=== PATIENT | male | born 1975 | race Caucasian/White ===

== ENCOUNTER 2018-01-06 12:14 | Day surgery (SDC) | payer SELFPAY ==
[2018-01-05 08:43] VITALS: BMI 30.5
--- NOTE | 2018-01-05 09:38 | HP ---
HISTORY AND PHYSICAL CHIEF COMPLAINT: Left knee pain. 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 It has worsened recently. He notes lateral pain along with swelling and occasional giving way. He notes it does significantly limit him. PAST MEDICAL HISTORY: Negative. PAST SURGICAL HISTORY: Negative. CURRENT MEDICATIONS: None. ALLERGIES: He denies drug allergies. FAMILY HISTORY: Negative. SOCIAL HISTORY: Significant for social alcohol use. REVIEW OF SYSTEMS: Sixteen-point review of systems otherwise reviewed and is noncontributory. PHYSICAL EXAMINATION: On examination, the patient is approximately 6 feet tall, 225 pounds of mesomorphic habitus. HEENT exam is nonfocal. Neck is supple. He has painless passive motion of his left hip. Straight leg raise is negative. Active motion left knee -4 to 125 degrees of flexion. He is tender about the lateral joint line. Collaterals are stable, Suzi's negative, Mariana's elicits lateral pain. His distal neurovascular exam appears intact in the left lower extremity. Weightbearing notch lateral and Merchant views of the left knee obtained in the office show some flattening of the lateral femoral condyle. Previous MRI report showed evidence of a discoid lateral meniscus along with a lateral meniscal tear. IMPRESSION: 1. Internal derangement left knee with symptomatic lateral meniscal tear. 2. Left knee discoid lateral meniscus. RECOMMENDATIONS: I talked to the patient regarding his condition and treatment options. At this point, he is having significant pain and mechanical symptoms that limit him. After discussing his options, he opts to proceed with surgery. We will plan to proceed with arthroscopic evaluation with possible partial lateral meniscectomy/saucerization of the lateral meniscus. We will likely perform that as an outpatient procedure. Risks and benefits were discussed at length in layman's terms. MMODL / IJN: [id number] /
[~2018-01-06 12:14] MED LIST: DEXAMETHASONE SOD PHOSPHATE 10 MG/ML 1 ML VIAL IV ONE; LACTATED RINGERS 1,000 ML IV SCH; MIDAZOLAM 2 MG/2 ML VIAL IV PRN; ONDANSETRON 4 MG/2 ML VIAL IVP ONE; ceFAZolin IN SWFI 2 GM/20 ML SYRINGE IVP ONE
[2018-01-06] MEDS ORDERED: LIDOCAINE 1% 20 ML VIAL (10MG/ML) FOR IV START INTRADERMA ONE (12:55)
[2018-01-06] MEDS ORDERED: SUCCINYLCHOLINE CHLORIDE 100 MG/5 ML SYR IV ONE (14:20)
[2018-01-06] MEDS ORDERED: GLYCOPYRROLATE 0.2 MG/ML 2 ML VIAL ONE (14:20)
[2018-01-06] MEDS ORDERED: MIDAZOLAM 2 MG/2 ML VIAL ONE (14:20)
[2018-01-06] MEDS ORDERED: PROPOFOL 10 MG/ML 20 ML VIAL IV ONE (14:20)
[2018-01-06] MEDS ORDERED: fentaNYL (PF) 50 MCG/ML 2 ML AMP ONE (14:20)
[2018-01-06] MEDS ORDERED: LIDOCAINE 1% INJ 10MG/ML (20 ML MDV) ONE (14:20)
[2018-01-06] MEDS ORDERED: methylPREDNISolone ACETATE 80 MG/ML 1 ML VIAL INTRAARTIC ONE (14:33)
[2018-01-06] MEDS ORDERED: LIDOCAINE 2% (PF) 20 MG/ML 10 ML AMP INTRAARTIC ONE (14:33)
[2018-01-06] MEDS ORDERED: LACTATED RINGERS 1,000 ML IV ONE ×2 (14:35→16:03)
--- NOTE | 2018-01-06 15:16 | P.OP ---
Date of Procedure: 01/06/18 Preoperative Diagnosis: Left knee lateral meniscal teardiscoid meniscus/right knee internal derangement Postoperative Diagnosis: Same Procedure(s) Performed: Left knee arthroscopic partial lateral meniscectomy/cortisone injection right knee Anesthesia: CHINOA Surgeon: Jorden Andrade Estimated Blood Loss (ml): 10 Pathology: none sent Condition: stable Disposition: PACU Indications for Procedure: The patient is a 42-year-old male who presents with progressive left knee pain and mechanical symptoms for quite some time. Clinically and by MRI he was noted of evidence of a discoid lateral meniscus with a lateral meniscal tear. A discussion of the risks and benefits of operative intervention versus continued conservative measures was made with patient. He opted to proceed. Operative risks to include infection, neurovascular injury, development of blood clots, possible incomplete resolution of symptoms, possible worsening symptoms and need for subsequent procedures was discussed. Informed consent was obtained. He also mentioned he had significant recent pain in his right knee and requested a cortisone injection while under anesthesia for that knee. Informed consent was obtained for that as well. Operative Findings: As below Description of Procedure: The patient was brought to the operating room and after induction of general anesthesia I prepped the right lateral knee. 80 mg of Depo-Medrol and 2 mL of 1 % plain lidocaine was injected. The left lower extremity was prepped and draped in normal fashion. I did examined the left knee. Collaterals were stable, Suzi was negative, and posterior drawer was negative. The left lower extremity was prepped and draped in a normal fashion. A superior lateral portal was used for outflow 3 mm superior and lateral to the patella. A lateral portal was made through a 5 mm vertical skin incision lateral to the patella tendon above the joint line. Diagnostic arthroscopy was performed. A medial portal was made through a similar incision medial to the patella tendon above the joint. On inspection of the medial compartment, the medial meniscus was stable and intact. No significant articular cartilage damage was noted. On inspection of the notch, the anterior cruciate ligament appeared to be intact. On inspection the lateral compartment, a discoid lateral meniscus was noted with a macerated tear involving the posterior, middle, and anterior one third. This was debrided back to stable base with straight baskets and a motorized shaver. The remaining lateral meniscus was stable and intact. Corresponding grade 2 chondral changes were noted diffusely. On inspection patellofemoral articulation, there is mild degenerative changes however no loose cartilage fragments. The gutters were clear debris. The knee was then thoroughly irrigated. The portals were closed with Steri-Strips. A sterile dressing was applied in addition to a compression stocking. The patient was awoken from general anesthesia and transferred to recovery room in good condition. Blood loss was estimated 10 mL. No complications were incurred.
[2018-01-06 15:24] VITALS: TEMP 97.2
[2018-01-06] MEDS: HYDROmorphone 0.5 MG/0.5 ML SYRINGE IVP PRN ×2 (15:33→15:38)
[2018-01-06 15:48] VITALS: RESP 16
[2018-01-06] MEDS ORDERED: HYDROcodone/APAP 5-325MG 1 EACH TAB PO ONE (16:23)
[2018-01-06 16:49] VITALS: BP 131/75; PULSE 59
== END 2018-01-06 17:21 | disposition home or self-care (01) ==
LOC: OR 12:14
PROVIDERS: ATTEND Orthopaedic Surgery
DX: S83.282A Other tear of lateral meniscus, current injury, left knee, initial encounter (principal); X58.XXXA Exposure to other specified factors, initial encounter; M23.91 Unspecified internal derangement of right knee
CPT/HCPCS: 29881; 20610; J2250; J1040; J1100; J2001 ×2; J2405; J3010; J0330; J2704; J1170; J0690